=== PATIENT | female | born 1995 ===

== ENCOUNTER → 2020-12-06 12:32 | Outpatient (CLI) | payer OTHER, SELFPAY ==
[2020-12-06 13:38] LABS: Barbiturates Screen,Urine Negative ng/ml (<200)
[2020-12-06 13:39] LABS: Amphetamine/Metha Screen,Urine Negative ng/ml (<1000); Benzodiazepines Screen,Urine Negative ng/ml (<200)
[2020-12-06 13:40] LABS: Cannabinoid Screen,Urine Negative ng/ml (<50)
[2020-12-06 13:41] LABS: Cocaine Screen,Urine Negative ng/ml (<300); Methadone Screen,Urine Negative ng/ml (<300)
[2020-12-06 13:42] LABS: Opiate Screen,Urine Negative ng/ml (<300)
[2020-12-06 13:43] LABS: Phencyclidine Screen,Urine Negative ng/ml (<25)
[2020-12-13 12:47] LABS: Buprenorphine, Urine Positive (Cutoff=10)
== END ==
DX: F11.20 Opioid dependence, uncomplicated (principal)
CPT/HCPCS: 80305; 80307

== ENCOUNTER → 2021-01-03 11:27 | Outpatient (CLI) | payer OTHER, SELFPAY ==
[2021-01-03 12:38] LABS: HCG Qualitative, Serum Positive (Negative)
[2021-01-03 13:45] LABS: Benzodiazepines Screen,Urine Negative ng/ml (<200)
[2021-01-03 13:46] LABS: Amphetamine/Metha Screen,Urine Negative ng/ml (<1000); Barbiturates Screen,Urine Negative ng/ml (<200)
[2021-01-03 13:47] LABS: Cannabinoid Screen,Urine Negative ng/ml (<50); Cocaine Screen,Urine Negative ng/ml (<300)
[2021-01-03 13:49] LABS: Opiate Screen,Urine Negative ng/ml (<300); Phencyclidine Screen,Urine Negative ng/ml (<25)
[2021-01-03 13:52] LABS: Methadone Screen,Urine Negative ng/ml (<300)
[2021-01-13 08:39] LABS: Buprenorphine, Urine Positive (Cutoff=10)
== END ==
DX: F11.20 Opioid dependence, uncomplicated (principal)
CPT/HCPCS: 80305; 80307; 84703

== ENCOUNTER → 2021-01-17 12:03 | Outpatient (CLI) | payer OTHER, SELFPAY ==
[2021-01-17 14:05] LABS: Amphetamine/Metha Screen,Urine Negative ng/ml (<1000)
[2021-01-17 14:06] LABS: Barbiturates Screen,Urine Negative ng/ml (<200); Benzodiazepines Screen,Urine Negative ng/ml (<200)
[2021-01-17 14:07] LABS: Cannabinoid Screen,Urine Negative ng/ml (<50)
[2021-01-17 14:08] LABS: Cocaine Screen,Urine Negative ng/ml (<300); Methadone Screen,Urine Negative ng/ml (<300)
[2021-01-17 14:09] LABS: Opiate Screen,Urine Negative ng/ml (<300); Phencyclidine Screen,Urine Negative ng/ml (<25)
[2021-01-21 12:23] LABS: Buprenorphine, Urine Positive (Cutoff=10)
== END ==
DX: F11.20 Opioid dependence, uncomplicated (principal)
CPT/HCPCS: 36415; 80305; 80307